=== PATIENT | male | born 1955 | race Hispanic/Latino ===

== ENCOUNTER 2017-01-17 06:39 | Day surgery (SDC) | payer BC ==
[2017-01-17 06:48] VITALS: BMI 27.3
--- NOTE | 2017-01-17 07:01 | ED PDOC ---
Arrival/HPI - General Time Seen by Provider: 01/17/17 06:41 Historian: Patient - History of Present Illness Narrative History of Present Illness (Text): 01/17/17 06:55 61 yo male with h/o HTN, HCL presents to the ED c/o left chest pain x 2 days. States that it feels intermittent dull and sharp. It happens at rest and on exertion. Non-radiating. Associated with shortness of breathe. At times he gets shortness of breathe on exertion. No leg swelling. He has been under a lot of stress lately. Has had a nonproductive cough this week. He does not associate the chest pain with cough or food. No vomiting or diarrhea. No trauma. 4 days ago he was at [facility] for the same symptoms, admitted and discharged. PMD: Dr. Denson Cardiology: Dr. Mcintosh Stress test Mar, 2015 - 50-60% stenosis. 01/17/17 07:01 Past Medical History - Provider Review Nursing Documentation Reviewed: Yes - Infectious Disease Hx of Infectious Diseases: None - Tetanus Immunization Tetanus Immunization: Unknown - Cardiac Hx Hypertension: Yes Hx Pacemaker: No - Pulmonary Hx Respiratory Disorders: No - Neurological Hx Neurological Disorder: No Hx Paralysis: No - HEENT Hx HEENT Disorder: No - Renal Hx Renal Disorder: No - Endocrine/Metabolic Hx Endocrine Disorders: No - Hematological/Oncological Hx Blood Transfusions: No Hx Blood Transfusion Reaction: No - Integumentary Hx Dermatological Disorder: No - Musculoskeletal/Rheumatological Hx Musculoskeletal Disorders: Yes - Gastrointestinal Hx Gastrointestinal Disorders: No - Genitourinary/Gynecological Hx Genitourinary Disorders: No - Psychiatric Hx Emotional Abuse: No Hx Physical Abuse: No Hx Substance Use: No - Anesthesia Hx Anesthesia Reactions: No Hx Malignant Hyperthermia: No - Suicidal Assessment Feels Threatened In Home Enviroment: No Family/Social History - Physician Review Nursing Documentation Reviewed: Yes Family/Social History: No Known Family HX Smoking Status: Never Smoked Hx Alcohol Use: Yes (beer) Hx Substance Use: No Hx Substance Use Treatment: No Allergies/Home Meds Allergies/Adverse Reactions: Allergies tuberculin, purified protein deriva Allergy (Verified 01/17/17 06:53) RASH Home Medications: Home Meds Medication Instructions Recorded Confirmed Losartan [Cozaar] 100 mg PO DAILY 03/16/15 01/17/17 Aspirin 81 mg PO DAILY 03/22/15 01/17/17 amLODIPine [Norvasc] 10 mg pe PO DAILY 01/17/17 01/17/17 Review of Systems - Physician Review All systems were reviewed & negative as marked: Yes - Review of Systems Constitutional: Normal Eyes: Normal ENT: Normal Respiratory: SOB, Cough. absent: Sputum, Wheezing Cardiovascular: Chest Pain, SANDOVAL. absent: Palpitations, Edema, Calf Pain Gastrointestinal: Normal Genitourinary Male: Normal Musculoskeletal: Normal Skin: Normal Neurological: Normal Endocrine: Normal Hemo/Lymphatic: Normal Psychiatric: Normal Physical Exam Vital Signs Reviewed: Yes Temperature: Afebrile Blood Pressure: Normal Pulse: Regular Respiratory Rate: Normal Appearance: Positive for: Well-Appearing, Non-Toxic, Uncomfortable Pain Distress: None Mental Status: Positive for: Alert and Oriented X 3 - Systems Exam Head: Present: Atraumatic, Normocephalic Pupils: Present: PERRL Extroacular Muscles: Present: EOMI Conjunctiva: Present: Normal Mouth: Present: Moist Mucous Membranes Neck: Present: Normal Range of Motion Respiratory/Chest: Present: Clear to Auscultation, Good Air Exchange. No: Respiratory Distress, Accessory Muscle Use Cardiovascular: Present: Regular Rate and Rhythm, Normal S1, S2. No: Murmurs Abdomen: Present: Normal Bowel Sounds. No: Tenderness, Distention, Peritoneal Signs Back: Present: Normal Inspection Upper Extremity: Present: Normal Inspection. No: Cyanosis, Edema Lower Extremity: Present: Normal Inspection. No: Edema Neurological: Present: GCS=15, CN II-XII Intact, Speech Normal, Motor Func Grossly Intact, Normal Sensory Function Skin: Present: Warm, Dry, Normal Color. No: Rashes Psychiatric: Present: Alert, Oriented x 3, Normal Insight, Normal Concentration Medical Decision Making ED Course and Treatment: 01/17/17 07:06 61 yo male with chest pain r/o ACS, r/o PNA r/o Anxiety r/o CHF -- Labs -- CXR, EKG -- Aspirin 325mg -- Currently does not have chest pain. Will sign out to Dr. Fu to f/u CXR , labs, and admit. - RAD Interpretation Radiology Orders: 01/17/17 06:54 CHEST PORTABLE [RAD] Stat - EKG Interpretation Interpreted by ED Physician: Yes (NSR at 60 bpm with LAD, TWI III, AVF, no ST elevations) Type: 12 lead EKG Comparison: No previous EKG avail. - Medication Orders Current Medication Orders: Aspirin (Aspirin) 325 mg PO STAT STA Stop: 01/17/17 06:54 Disposition/Present on Arrival - Present on Arrival Any Indicators Present on Arrival: No History of DVT/PE: No History of Uncontrolled Diabetes: No Urinary Catheter: No History of Decub. Ulcer: No History Surgical Site Infection Following: None - Disposition Have Diagnosis and Disposition been Completed?: No Diagnosis: Chest pain Disposition Time: 07:08 Condition: FAIR Discharge Instructions (ExitCare): Chest Pain (ED)
[2017-01-17 07:14] LABS: BASO # 0.08 K/mm3 (0.0-2.0); BASO % 1.4 % (0.0-3.0); EOS # 0.2 (0.0-0.7); EOS % 3.1 % (1.5-5.0); GRAN # 3.56 (1.4-6.5); GRAN % 61.7 % (50.0-68.0); HEMOGLOBIN 12.5 gm/dL (14.0-18.0); LYMPH # 1.5 (1.2-3.4); LYMPH % 26.2 % (22.0-35.0); MEAN CELL VOLUME 97.4 fL (80.0-105.0); MEAN CORPUSCULAR HEMOGLOBIN 32.7 pg (25.0-35.0); MEAN CORPUSCULAR HGB CONC 33.6 g/dl (31.0-37.0); MEAN PLATELET VOLUME 9.8 fl (7.0-11.0); MONO # 0.4 (0.1-0.6); MONO % 7.6 % (1.0-6.0); PLATELET COUNT 235 10^3/uL (120.0-450.0); RBC 3.82 10^6/uL (3.5-6.1); RED CELL DISTRIBUTION WIDTH 13.8 % (11.5-14.5); WHITE BLOOD COUNT 5.8 10^3/ul (4.5-11.0)
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
[2017-01-17 07:22] LABS: INR 1.04 (0.93-1.08); PARTIAL THROMBOPLASTIN TIME 28.9 Seconds (23.7-30.8); PROTHROMBIN TIME 11.2 Seconds (9.9-11.8)
[2017-01-17 07:25] LABS: ALB/GLOB RATIO 1.4 (1.1-1.8); ALBUMIN 4.4 g/dL (3.0-4.8); ALT/SGPT 53 U/L (7-56); AST/SGOT 47 U/L (15-59); BLOOD UREA NITROGEN 14 mg/dL (7-21); CALCIUM 9.6 mg/dL (8.4-10.5); GFR AFRICAN-AMERICAN > 60; GFR NON-AFRICAN AMERICAN > 60; MAGNESIUM 1.7 mg/dL (1.7-2.2)
[2017-01-17 07:30] VITALS: O2SAT 98
[2017-01-17 07:38] LABS: TROPONIN I < 0.01 ng/mL
[2017-01-17] MEDS ORDERED: Iodixanol 320 MG/ML 200 ML BOTTLE IV ONE (08:36)
[2017-01-17] MEDS ORDERED: Lidocaine 2% Inj (20ml) ONE (08:36)
[2017-01-17] MEDS ORDERED: Iohexol 350mgl/ml 50 ML ONE (08:36)
[2017-01-17] MEDS ORDERED: Iodixanol 320 MG/ML 100 ML BOTTLE IV ONE (08:36)
[2017-01-17] MEDS ORDERED: Midazolam 2 MG/2 ML VIAL ONE ×2 (09:02→09:04)
[2017-01-17] MEDS ORDERED: Sodium Chloride 0.9% 1,000 ML IV SCH (09:45)
--- NOTE | 2017-01-17 12:07 | CARD ---
APPROVED REPORT EKG Measurement Heart [id number] <Conclusion> Normal sinus rhythm Left axis deviation Moderate voltage criteria for LVH, may be normal variant Abnormal ECG
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
--- NOTE | 2017-01-17 13:38 | CP.PCM.HP ---
<CHERI PINO - Last Filed: 01/17/17 13:24> History of Present Illness - History of Present Illness History of Present Illness: Cheri Pino DO PGY1 - Internal Medicine H&P - Janiya/Debra Service CC: SOB and chest tightness HPI:61 yo M with PMH of HTN, HLD, asthma, emphysema who presented to [facility] complaining of CP for the past two days. He first started having SOB 2 weeks ago , and this past Friday (4 days ago) got worse and was associated with CP, diaphoresis, RAMIRES, lightheadedness and chest tightness. He went [place] [facility] was kept overnight, then discharged without any procedural intervention. CP occurred at rest and with exertion, was non-radiating. This morning, CP returned again, and he came to the ER, and had EKG and CXR done in the ER, then taken to the laborer wood preserving plant by Dr. Mcintosh. He is seen now at bedside, s/p angiocath. He appears tired, but comfortable, and denies any CP, SOB, cough, wheeze, abdominal pain, N/V/D/C , palpitations, diaphoresis. He also denies leg pain, numbness, swelling. PMH: Asthma, HTN, HLD, Emphysema, PSH: None Meds: Reviewed Soc: EtOH 6 drinks twice weekly, Tobacco previous smoker quit 35 years ago, Illicits denies FHx: Father with CVA, HTN, cirrhosis. Sister with lung CA All: NKDA ROS: Constitutional: pt denies fever, chills, generalized weakness ENT: pt denies dysphagia, otalgia, hearing deficit, rhinorrhea Eyes: pt denies sudden loss of vision, diplopia, blurred vision MSK: pt denies muscle stiffness, joint pain, extremity cramping Cardio: pt denies cp, sob, dvt Pulm: pt denies cough, hemoptysis, wheeze GI: pt denies loss of appetite, abdominal pain, constipation, melena, n/v/d : pt denies burning on urination, urinary frequency, hematuria, urinary urgency Neuro: pt denies paresis, paresthesia, dizziness, ramires, numbness, tingling Derm: pt denies skin changes, lesions, nail changes Endo: pt denies intolerance to heat/cold, diaphoresis, night sweats, polydipsia Psych: pt denies anxiety, depression, mood changes Present on Admission - Present on Admission Any Indicators Present on Admission: No Past Patient History - Infectious Disease Hx of Infectious Diseases: None - Tetanus Immunizations Tetanus Immunization: Unknown - Past Social History Smoking Status: Never Smoked - CARDIAC Hx Hypertension: Yes Hx Pacemaker: No - PULMONARY Hx Respiratory Disorders: No - NEUROLOGICAL Hx Neurological Disorder: No Hx Paralysis: No - HEENT Hx HEENT Problems: No - RENAL Hx Chronic Kidney Disease: No - ENDOCRINE/METABOLIC Hx Endocrine Disorders: No - HEMATOLOGICAL/ONCOLOGICAL Hx Blood Transfusions: No Hx Blood Transfusion Reaction: No - INTEGUMENTARY Hx Dermatological Problems: No - MUSCULOSKELETAL/RHEUMATOLOGICAL Hx Musculoskeletal Disorders: Yes - GASTROINTESTINAL Hx Gastrointestinal Disorders: No - GENITOURINARY/GYNECOLOGICAL Hx Genitourinary Disorders: No - PSYCHIATRIC Hx Emotional Abuse: No Hx Physical Abuse: No Hx Substance Use: No - SURGICAL HISTORY Hx Surgeries: Yes - ANESTHESIA Hx Anesthesia Reactions: No Hx Malignant Hyperthermia: No Meds Allergies/Adverse Reactions: Allergies Allergy/AdvReac Type Severity Reaction Status Date / Time tuberculin, purified protein Allergy RASH Verified 01/17/17 06:53 deriva Physical Exam - Constitutional Appears: Non-toxic, No Acute Distress - Head Exam Head Exam: ATRAUMATIC, NORMOCEPHALIC - Eye Exam Eye Exam: EOMI, Normal appearance, PERRL - ENT Exam ENT Exam: Mucous Membranes Moist - Neck Exam Neck exam: Positive for: Normal Inspection. Negative for: Lymphadenopathy, Thyromegaly Additional comments: No JVD - Respiratory Exam Respiratory Exam: Clear to Auscultation Bilateral. absent: Rales, Rhonchi, Wheezes - Cardiovascular Exam Cardiovascular Exam: RRR, +S1, +S2 - GI/Abdominal Exam GI & Abdominal Exam: Normal Bowel Sounds, Soft. absent: Tenderness - Extremities Exam Extremities exam: Positive for: normal inspection. Negative for: pedal edema, tenderness Additional comments: Right groin wound CDI. Dressing in place, no blood or drainage. No pseudoaneurysm. No hematoma. No bruit on auscultation. - Neurological Exam Neurological exam: Alert, Oriented x3 - Psychiatric Exam Psychiatric exam: Normal Affect, Normal Mood - Skin Skin Exam: Dry, Intact Results - Vital Signs Recent Vital Signs: Last Vital Signs Temp 98.0 F 01/17/17 07:28 Pulse 61 01/17/17 07:28 Resp 18 01/17/17 07:28 BP 128/83 01/17/17 07:28 Pulse Ox 98 01/17/17 07:28 - Labs Result Diagrams: 01/17/17 06:45 01/17/17 06:45 Labs: Laboratory Results - last 24 hr 01/17/17 01/17/17 01/17/17 06:45 06:45 06:45 WBC 5.8 RBC 3.82 Hgb 12.5 L Hct 37.2 L MCV 97.4 MCH 32.7 MCHC 33.6 RDW 13.8 Plt Count 235 MPV 9.8 Gran % 61.7 Lymph % (Auto) 26.2 [place] % (Auto) 7.6 H Eos % (Auto) 3.1 Baso % (Auto) 1.4 Gran # 3.56 Lymph # 1.5 [place] # 0.4 Eos # 0.2 Baso # 0.08 PT 11.2 INR 1.04 APTT 28.9 Sodium 137 Potassium 4.3 Chloride 102 Carbon Dioxide 23 Anion Gap 16 BUN 14 Creatinine 0.9 Est GFR ( Amer) > 60 Est GFR (Non-Af Amer) > 60 Random Glucose 105 Calcium 9.6 Magnesium 1.7 Total Bilirubin 0.9 AST 47 ALT 53 Alkaline Phosphatase 61 Lactate Dehydrogenase 576 Total Creatine Kinase 174 Troponin I < 0.01 NT-Pro-B Natriuret Pep Total Protein 7.6 Albumin 4.4 Globulin 3.1 Albumin/Globulin Ratio 1.4 01/17/17 08:00 WBC RBC Hgb Hct MCV MCH MCHC RDW Plt Count MPV Gran % Lymph % (Auto) [place] % (Auto) Eos % (Auto) Baso % (Auto) Gran # Lymph # [place] # Eos # Baso # PT INR APTT Sodium Potassium Chloride Carbon Dioxide Anion Gap BUN Creatinine Est GFR ( Amer) Est GFR (Non-Af Amer) Random Glucose Calcium Magnesium Total Bilirubin AST ALT Alkaline Phosphatase Lactate Dehydrogenase Total Creatine Kinase Troponin I NT-Pro-B Natriuret Pep 42.8 Total Protein Albumin Globulin Albumin/Globulin Ratio Assessment & Plan - Assessment and Plan (Free Text) Assessment: 61 yo M with PMH of HTN, HLD, asthma, and emphysema presented with CP, s/p cath today. 1. CP - ACS - Patient is s/p cardiac cath this AM with Dr. Mcintosh, pending report - Continue ASA, Plavix - Continue to monitor in tele - Likely d/c today if remains stable 2. Hx of HLD, HTN, and asthma - Continue home regimen DVT PPx - SCDs Patient seen and reviewed with attending Dr. Richardson <Ritesh Richardson - Last Filed: 01/17/17 19:21> Results - Vital Signs Recent Vital Signs: Last Vital Signs Temp 97.8 F 01/17/17 18:13 Pulse 69 01/17/17 18:13 Resp 20 01/17/17 18:13 BP 156/65 H 01/17/17 18:13 Pulse Ox 98 01/17/17 18:13 - Labs Result Diagrams: 01/17/17 06:45 01/17/17 06:45 Labs: Laboratory Results - last 24 hr 01/17/17 01/17/17 01/17/17 06:45 06:45 06:45 WBC 5.8 RBC 3.82 Hgb 12.5 L Hct 37.2 L MCV 97.4 MCH 32.7 MCHC 33.6 RDW 13.8 Plt Count 235 MPV 9.8 Gran % 61.7 Lymph % (Auto) 26.2 [place] % (Auto) 7.6 H Eos % (Auto) 3.1 Baso % (Auto) 1.4 Gran # 3.56 Lymph # 1.5 [place] # 0.4 Eos # 0.2 Baso # 0.08 PT 11.2 INR 1.04 APTT 28.9 Sodium 137 Potassium 4.3 Chloride 102 Carbon Dioxide 23 Anion Gap 16 BUN 14 Creatinine 0.9 Est GFR ( Amer) > 60 Est GFR (Non-Af Amer) > 60 Random Glucose 105 Calcium 9.6 Magnesium 1.7 Total Bilirubin 0.9 AST 47 ALT 53 Alkaline Phosphatase 61 Lactate Dehydrogenase 576 Total Creatine Kinase 174 Troponin I < 0.01 NT-Pro-B Natriuret Pep Total Protein 7.6 Albumin 4.4 Globulin 3.1 Albumin/Globulin Ratio 1.4 01/17/17 08:00 WBC RBC Hgb Hct MCV MCH MCHC RDW Plt Count MPV Gran % Lymph % (Auto) [place] % (Auto) Eos % (Auto) Baso % (Auto) Gran # Lymph # [place] # Eos # Baso # PT INR APTT Sodium Potassium Chloride Carbon Dioxide Anion Gap BUN Creatinine Est GFR ( Amer) Est GFR (Non-Af Amer) Random Glucose Calcium Magnesium Total Bilirubin AST ALT Alkaline Phosphatase Lactate Dehydrogenase Total Creatine Kinase Troponin I NT-Pro-B Natriuret Pep 42.8 Total Protein Albumin Globulin Albumin/Globulin Ratio Attending/Attestation - Attestation I have personally seen and examined this patient.: Yes I have fully participated in the care of the patient.: Yes I have reviewed all pertinent clinical information: Yes Notes (Text): 01/17/17 19:20 Medical record note made by the resident after discussion with my direction and input after the patient was personally seen and examined by me. I have reviewed the chart and agree that the record accurately reflects by personal performance of the history, physical exam, data review, and medical decision-making, in the course for the patient. I have also personally directed the plan of care.
[2017-01-17 18:15] VITALS: BP 156/65; PULSE 69; RESP 20; TEMP 97.8
--- NOTE | 2017-01-17 22:46 | CARDCATH ---
PROCEDURE DATE: 01/17/2017 PERFORMING PHYSICIAN: Lonny Mcintosh MD HISTORY: The patient is a 61-year-old male who presented to the emergency room with progressive chest pain. The patient was seen in the emergency room at [facility] earlier this week and was discharged with negative troponins. He continues to experience chest pain and finally presented to the emergency room when the symptoms were at rest. The patient has previous documented CAD in the past. Because of this, cardiac catheterization was recommended. PROCEDURE: Left heart catheterization with coronary aortography and left ventriculogram. FINDINGS: The right femoral artery was cannulated with a 6-[place] sheath. There were no complications. The findings on catheterization revealed a left ventricle that contracted normally. Estimated ejection fraction is 60%. His coronary anatomy revealed a right dominant circulation. The RCA revealed a 50% stenosis in the midportion. The LAD was a long vessel and was free of significant disease. The LAD was a small vessel and revealed intimal irregularities without significant stenosis. The circumflex artery obtuse marginal branches revealed intimal irregularities without critical lesions. Angio-Seal was used to close the femoral artery site. The patient tolerated the procedure well. SUMMARY: The procedure revealed a 50% stenosis in the mid RCA with intimal irregularities throughout the coronary tree. LV function is normal. Given these findings, the patient's chest pain is not of cardiac origin. We will continue cardiac risk reduction program. The patient will be sent to Telemetry for continued groin management. Lonny Mcintosh MD
--- NOTE | 2017-01-18 07:23 | CP.PCM.DIS ---
Provider - Provider Attending physician: Robert Denson MD Primary care physician: Robert Denson MD Consults: Cardio: Arnaldo Time Spent in preparation of Discharge (in minutes): 35 Diagnosis - Discharge Diagnosis (1) Chest pain Status: Acute Hospital Course - Lab Results Lab Results: Most Recent Lab Values WBC 5.8 10^3/ul (4.5-11.0) 01/17/17 06:45 RBC 3.82 10^6/uL (3.5-6.1) 01/17/17 06:45 Hgb 12.5 gm/dL (14.0-18.0) L 01/17/17 06:45 Hct 37.2 % (42.0-52.0) L 01/17/17 06:45 MCV 97.4 fL (80.0-105.0) 01/17/17 06:45 MCH 32.7 pg (25.0-35.0) 01/17/17 06:45 MCHC 33.6 g/dl (31.0-37.0) 01/17/17 06:45 RDW 13.8 % (11.5-14.5) 01/17/17 06:45 Plt Count 235 10^3/uL (120.0-450.0) 01/17/17 06:45 MPV 9.8 fl (7.0-11.0) 01/17/17 06:45 Gran % 61.7 % (50.0-68.0) 01/17/17 06:45 Lymph % (Auto) 26.2 % (22.0-35.0) 01/17/17 06:45 [place] % (Auto) 7.6 % (1.0-6.0) H 01/17/17 06:45 Eos % (Auto) 3.1 % (1.5-5.0) 01/17/17 06:45 Baso % (Auto) 1.4 % (0.0-3.0) 01/17/17 06:45 Gran # 3.56 (1.4-6.5) 01/17/17 06:45 Lymph # 1.5 (1.2-3.4) 01/17/17 06:45 [place] # 0.4 (0.1-0.6) 01/17/17 06:45 Eos # 0.2 (0.0-0.7) 01/17/17 06:45 Baso # 0.08 K/mm3 (0.0-2.0) 01/17/17 06:45 PT 11.2 Seconds (9.9-11.8) 01/17/17 06:45 INR 1.04 (0.93-1.08) 01/17/17 06:45 APTT 28.9 Seconds (23.7-30.8) 01/17/17 06:45 Sodium 137 mmol/L (132-148) 01/17/17 06:45 Potassium 4.3 mmol/L (3.6-5.0) 01/17/17 06:45 Chloride 102 mmol/L (98-107) 01/17/17 06:45 Carbon Dioxide 23 mmol/L (21-33) 01/17/17 06:45 Anion Gap 16 (10-20) 01/17/17 06:45 BUN 14 mg/dL (7-21) 01/17/17 06:45 Creatinine 0.9 mg/dL (0.5-1.4) 01/17/17 06:45 Est GFR ( Amer) > 60 01/17/17 06:45 Est GFR (Non-Af Amer) > 60 01/17/17 06:45 Random Glucose 105 mg/dL (70-110) 01/17/17 06:45 Calcium 9.6 mg/dL (8.4-10.5) 01/17/17 06:45 Magnesium 1.7 mg/dL (1.7-2.2) 01/17/17 06:45 Total Bilirubin 0.9 mg/dL (0.2-1.3) 01/17/17 06:45 AST 47 U/L (15-59) 01/17/17 06:45 ALT 53 U/L (7-56) 01/17/17 06:45 Alkaline Phosphatase 61 U/L (38-133) 01/17/17 06:45 Lactate Dehydrogenase 576 U/L (333-699) 01/17/17 06:45 Total Creatine Kinase 174 U/L (35-230) 01/17/17 06:45 Troponin I < 0.01 ng/mL 01/17/17 06:45 NT-Pro-B Natriuret Pep 42.8 pg/mL (0-450) 01/17/17 08:00 Total Protein 7.6 g/dL (5.8-8.3) 01/17/17 06:45 Albumin 4.4 g/dL (3.0-4.8) 01/17/17 06:45 Globulin 3.1 gm/dL 01/17/17 06:45 Albumin/Globulin Ratio 1.4 (1.1-1.8) 01/17/17 06:45 - Hospital Course Hospital Course: Patient is a 61 yo M with PMH of HTN, HLD, asthma, emphysema who presented today to [facility] complaining of progressive CP. Please see prior note today for detailed HPI and PE. He was taken to label stamper by Dr. Mcintosh, and was found to have 50% stenosis in midportion of RCA, and chest pain was determined to be non- cardiac in origin. He was placed in Tele/Obs for management of groin wound. Patient is currently comfortable, no groin pain or swelling. Currently denies CP , SOB, n/v/d/c, abdominal pain. Please see prior note for detailed HPI, physical exam, and plan. Patient was seen and reviewed with attending Dr. Richardson Discharge Exam - Head Exam Head Exam: ATRAUMATIC, NORMOCEPHALIC Discharge Plan - Follow Up Plan Condition: FAIR Disposition: HOME/ ROUTINE Instructions: Chest Pain (DC), Heart Healthy Diet (DC), Cardiac Rehabilitation (DC), Heart Catheterization (DC), Chest Pain (GEN) Additional Instructions: 1. Continue to take all medications as prescribed 2. Off work until follow up with PCP next week. No heavy lifting over 5 lbs for one week 3. Follow up with bottle house pumper within 1 week 4. Follow up with PCP within 1 week 5. For any new or worsening symptoms or concerns, contact PCP immediately or return to ER. Referrals: Robert Denson MD [Primary Care Provider] - Follow up with primary Lonny Mcintosh MD [Staff Provider] -
== END 2017-01-17 19:41 | disposition home or self-care (01) ==
LOC: ED 06:39 → CATH 08:07 → 2RSO 09:40 → CATH 19:41
PROVIDERS: ATTEND Internal Medicine
DX: R07.89 Other chest pain (principal); I25.10 Atherosclerotic heart disease of native coronary artery without angina pectoris; I10 Essential (primary) hypertension; J43.9 Emphysema, unspecified; E78.5 Hyperlipidemia, unspecified; J45.909 Unspecified asthma, uncomplicated
CPT/HCPCS: 71010; 80053; 82550; 83615; 83735; 83880; 84484; 85025; 85610; 85730; 93005; 93458; 99152; 99285; C1760; C1769; C2629; J1644; J2250; J3010; J7040